=== PATIENT | female | born 1960 | race Caucasian/White ===

== ENCOUNTER → 2017-02-21 | Outpatient (CLI) | payer BC ==
--- NOTE | 2017-02-23 08:37 | RAD ---
DATE: 02/21/2017 EXAM: DIGITAL SCREEN BILAT W/CAD HISTORY: Screening COMPARISON: 01/30/2016 This study was interpreted with the benefit of Computerized Aided Detection (CAD). FINDINGS: Breast Density: SCATTERED The breast parenchyma shows scattered fibroglandular densities. Breast parenchyma level B. In the right breast, on the cc view, there is a well-defined oval mass seen best on the cc view and positioned superiorly on the MLO view. Targeted ultrasound is advised. Additionally, on the cc view of the right breast there is an area of increased density along the plane of the nipple probably reflecting summation artifact. A coned compression view and rolled CC views are suggested for confirmation. The left breast is unchanged and unremarkable. IMPRESSION: Well-defined mass upper outer right breast. Targeted ultrasound advised. Area of increased density on the cc view of the right breast likely reflecting summation artifact. Additional imaging suggested as outlined above BI-RADS CATEGORY: 0 INCOMPLETE: NEED ADDITIONAL IMAGING EVAULATION AND/OR PRIOR MAMMOGRAMS FOR COMPARISON RECOMMENDED FOLLOW-UP: ADD ADDITIONAL IMAGING PQRS compliance statement: Patient information was entered into a reminder system with a target due date soon for the next mammogram. Mammography is a sensitive method for finding small breast cancers, but it does not detect them all and is not a substitute for careful clinical examination. A negative mammogram does not negate a clinically suspicious finding and should not result in delay in biopsying a clinically suspicious abnormality. "Our facility is accredited by the [employer] Mammography Program."
== END | disposition home or self-care (01) ==
LOC: MAMMO 08:10
PROVIDERS: ATTEND Obstetrics & Gynecology
DX: Z12.31 Encounter for screening mammogram for malignant neoplasm of breast (principal)
CPT/HCPCS: G0202; 77067

== ENCOUNTER → 2017-02-26 | Outpatient (CLI) | payer BC ==
--- NOTE | 2017-02-26 13:55 | RAD ---
DATE: 02/26/2017 EXAM: DIGITAL DIAGNOSTIC RT, BREAST RIGHT HISTORY: Suspicious screening study COMPARISON: 02/21/2017, 01/30/2016, 01/24/2015 This study was interpreted with the benefit of Computerized Aided Detection (CAD). FINDINGS: Additional views of the right breast were obtained. They confirm the presence of a 10 mm smooth nodule in the lateral aspect of the right breast at approximately the 10:00 location. No associated microcalcifications are present. A possible small density seen posteriorly in the right breast near the midline on the screening CC view could not be reproduced. This appearance was probably due to a summation of fibroglandular shadows. Right breast ultrasound, 02/26/2017: A targeted ultrasound exam of the superior aspect of the right breast was performed. We first focused on the 10:00 location where the small smooth nodule was seen on the mammograms. No cystic or solid lesion was identified to correspond to this nodule. We also examined the upper portion of the right breast near the midline where the vague density had been seen on the screening study. No sonographic abnormality was detected. IMPRESSION: Additional mammograms confirm the presence of a smooth 10 mm nodule at the 10 clock location in the right breast. No sonographic correlate could be identified. Stereotactic biopsy is suggested for further evaluation. Note: The findings were discussed with the patient at the time of the exam and she is aware of the recommendation for biopsy. She will follow up with the ordering physician. BI-RADS CATEGORY: 4 SUSPICIOUS ABNORMALITY- BIOPSY SHOULD BE CONSIDERED RECOMMENDED FOLLOW-UP: BIO BIOPSY RECOMMENDED PQRS compliance statement: Patient information was entered into a reminder system with a target due date for the next mammogram. Mammography is a sensitive method for finding small breast cancers, but it does not detect them all and is not a substitute for careful clinical examination. A negative mammogram does not negate a clinically suspicious finding and should not result in delay in biopsying a clinically suspicious abnormality. "Our facility is accredited by the [employer] Mammography Program."
== END | disposition home or self-care (01) ==
LOC: MAMMO 12:40
PROVIDERS: ATTEND Obstetrics & Gynecology
DX: R92.8 Other abnormal and inconclusive findings on diagnostic imaging of breast (principal)
CPT/HCPCS: 76641; G0206; 77065

== ENCOUNTER 2017-09-04 10:37 | Day surgery (SDC) | payer OTHER ==
--- NOTE | 2017-09-03 16:21 | PDOC1 ---
JAIDEN KUMAR 09/03/17 1621: History and Physical Date of Admission Date of Admission DATE: 09/04/17 Identification/Chief Complaint Chief Complaint right wrist ganglion cyst Problems: Source Source: Chart review History of Present Illness History of Present Illness The patient is a 57 year old right-hand dominant female with a ganglion cyst on her right wrist. She denies any injuries. She does complain of pain related to the cyst. This was aspirated about 6 weeks ago and it has already recurred. She had numbness in her right hand, radiating up her arm that was improved by the aspiration. Past Medical History Past Medical History breast cyst, cervical herniated disk, carpal tunnel Pulmonary: Asthma GI: Other (colon polyps, Schatzki's ring) Past Surgical History Past Surgical History ACDF C5-6, hernia repair, left breast biopsy x3, wisdom teeth extraction Past Surgical History: Tonsillectomy Family History Family History: Diabetes, Hypertension Social History Smoke: No ALCOHOL: social Drugs: None Current Medications Current Medications Current Medications Ondansetron HCl (Zofran) 4 mg PRN Q6HRS PRN IV NAUSEA/VOMITING; Start 09/04/17 at 07:00; Stop 09/05/17 at 06:59 Fentanyl Citrate (Fentanyl 2ml Vial) 25 mcg PRN Q5MIN PRN IV MILD PAIN; Start 09/04/17 at 07:00; Stop 09/05/17 at 06:59 Fentanyl Citrate (Fentanyl 2ml Vial) 50 mcg PRN Q5MIN PRN IV MODERATE PAIN; Start 09/04/17 at 07:00; Stop 09/05/17 at 06:59 Morphine Sulfate 1 mg PRN Q10MIN PRN IV SEVERE PAIN; Start 09/04/17 at 07:00; Stop 09/05/17 at 06:59 Ringer's Solution 1,000 ml @ 30 mls/hr Q24H IV ; Start 09/04/17 at 07:00; Stop 09/04/17 at 18:59 Lidocaine HCl (Xylocaine-Mpf 1% Vial) 2 ml PRN 1X PRN ID IV START; Start at 07:00; Stop 09/05/17 at 06:59 Hydromorphone HCl (Dilaudid) 0.5 mg PRN Q10MIN PRN IV SEV PAIN, Second choice; Start 09/04/17 at 07:00; Stop 09/05/17 at 06:59 Prochlorperazine Edisylate (Compazine) 5 mg PACU PRN PRN IV NAUSEA, MRX1; Start 09/04/17 at 07:00; Stop 09/05/17 at 06:59 Allergies Allergies: Coded Allergies: nitrofurantoin (Verified Allergy, Intermediate, 09/02/17) Physical Exam General: Alert, Oriented X3, Cooperative, No acute distress HEENT: Atraumatic, EOMI Lungs: Normal air movement Heart: RRR Abdomen: Soft Extremities: No clubbing, No cyanosis, No edema, Normal pulses, Other (Right wrist: 1.5 cm x 1.5 cm ganglion cyst. The cyst illuminizes. Normal Mikel's. Normal sensation. Skin is intact. Neurovascularly intact distally. Motor function was demonstrated for the radial ulnar and median nerves, but strength is decreased due to pain and swelling. Negative Tinel's. ) Skin: No rashes, No breakdown, No significant lesion Neuro: Normal speech, Sensation intact Psych/Mental Status: Mental status NL, Mood NL VTE Prophylaxis Ordered VTE Prophylaxis Devices: Yes VTE Pharmacological Prophylaxi: Yes Assessment/Plan Assessment/Plan The patient has a ganglion cyst on the volar aspect of her right wrist that recurred shortly after an aspiration 6 weeks ago. It does illuminate under light and she has a normal Mikel's test. Dr. Mcdonnell recommended ganglion cyst excision. She agrees to this plan. Risks include going under anesthesia, nerve and artery damage, bleeding, recurrence, and infection. She agrees to this plan. Followup 10-14 days after surgery. SHILPA MCDONNELL MD 09/04/17 1345: History and Physical Allergies Allergies: Coded Allergies: nitrofurantoin (Verified Allergy, Intermediate, 09/02/17) Assessment/Plan Assessment/Plan Correction: all references to right wrist should be LEFT wrist. Patient is right handed and has a left wrist ganglion cyst. JNV 09/04/17 JAIDEN KUMAR Sep 03, 2017 16:21 SHILPA MCDONNELL MD Sep 04, 2017 13:45
[~2017-09-04] VITALS: Ht 167.6 cm; Wt 61.2 kg
[~2017-09-04 10:37] MED LIST: CALC600T4 PO; CHOL100013 PO; DEXAMETHASONE SOD PHOS 20 MG/5 ML VIAL. ONE; FAMOTIDINE 20 MG/2 ML VIAL ONE; FEXO180T81 PO; HYDROmorphone 2 MG/ML VIAL IV PRN; IV RINGERS,LACTATED 1000ML 1,000 ML IV SCH; KETOROLAC 30 MG/ML INJ FOR OR. INJ ONE; LIDOCAINE 1% PF 2 ML VIAL. ID PRN; LIDOCAINE 2% PF Vial for OR 5 ML VIAL. ONE; MIDAZOLAM HCL/PF 2 MG/2 ML VIAL. ONE; MORPHINE SULFATE 2 MG/ML DISP.SYRIN. IV PRN; MULT1TAB52 PO; ONDANSETRON PF 4 MG/2 ML VIAL. IV PRN; ONDANSETRON PF 4 MG/2 ML VIAL. ONE; PANT20TA2 PO; PROAIR HFA8.5 GM INH; PROCHLORPERAZINE 10 MG/2 ML VIAL. IV PRN; PROPOFOL 20 ML IV ONE; fentaNYL PF VIAL 100 MCG/2 ML VIAL IV PRN; fentaNYL PF VIAL 100 MCG/2 ML VIAL ONE
[2017-09-04] MEDS ORDERED: PANT40TA3 PO (11:13)
[2017-09-04] MEDS ORDERED: OMEG100021 PO (11:16)
[2017-09-04] MEDS ORDERED: ASPI81TA50 PO (11:16)
[2017-09-04] MEDS ORDERED: BUPIVAC MPF-EPI 0.5%-1:200000 30 ML VIAL. ONE (11:39)
[2017-09-04] MEDS ORDERED: SEVOFLURANE 16 TO 30 MINUTES. IH ONE (13:36)
--- NOTE | 2017-09-04 13:42 | PDOC4 ---
Operative Note Operative Note Date of Procedure: September 04, 2017 Pre-Op Diagnosis: Ganglion cyst left wrist Post-Op Diagnosis: Ganglion cyst left wrist Procedure: Excision ganglion cyst left wrist, recurrent Surgeon: Shilpa Mcdonnell MD Education Professor: Richa Montez PA-C Anesthesia: General EBL: 10 mL Specimens Obtained: Ganglion Complications: none Drains: none Tourniquet time: 6 minutes Indications for Procedure: The patient is a 57-year-old with recurrent left wrist ganglion cyst. We tried aspiration previously and the cyst immediately recurred. The patient and I discussed the risks, benefits and alternatives of surgery. We talked about the potential risks of surgery including recurrence, infection, neurovascular injury particularly to the radial artery, or other potential surgical or anesthetic competitions. Procedure in Detail: The patient was identified in the preoperative holding area. The correct left upper extremity was marked by me. The patient was taken to the operating room where general anesthesia was used. The patient was positioned supine on the operating table. Preoperative antibiotics were given intravenously. A timeout procedure was performed. The limb was prepared in sterile fashion. Sterile drapes were applied. An Esmarch bandage was used to exsanguinate the limb. The tourniquet was inflated to 250 mmHg. The volar approach of Chaim was used directly over the ganglion. Sharp dissection was used. The flexor carpi radialis tendon was retracted. The cyst was obvious, and attached to the volar aspect of the wrist joint. Circumferential careful dissection was performed. I used loupe magnification throughout to prevent arterial or nerve injury. Typical gelatinous cyst fluid was seen to express from the cyst as it was resected. After the cyst was excised, the tourniquet was released. Bovie electrocautery was used for hemostasis, using bipolar cautery near the main branches of the radial artery. Copious irrigation was used. I closed the cyst stalk where it emanated from the volar wrist capsule using 3-0 Vicryl suture. The incision edges were injected with 0.5% Marcaine with epinephrine. The incision was closed in layers. I placed 3-0 Vicryl subcutaneous cutaneous sutures. Richa closed the skin with 3-0 Prolene horizontal mattress sutures. She then applied a bulky sterile dressing and a volar wrist splint. Needle and sponge counts were correct. There were no apparent complications. SHILPA MCDONNELL MD Sep 04, 2017 13:42
[2017-09-04] MEDS ORDERED: HYDR-2762 PO (14:20)
[2017-09-04] MEDS ORDERED: HYDROcodone/APAP 7.5/325MG 1 TAB TABLET PO PRN (14:45)
[2017-09-04 14:52] VITALS: BP 114/70
[2017-09-04] MEDS ORDERED: HYDROcodone/APAP 7.5/325MG 1 TAB TABLET ONE (14:53)
--- NOTE | 2017-09-07 16:02 | PATHOLOGY ---
PATHOLOGY REPORT * * * * * * * * FINAL DIAGNOSIS: Segment of dense fibroconnective and fibroadipose tissue, left wrist: - Ganglion. (JPM:branden; 09/07/2017) REPORT ELECTRONICALLY SIGNED BY: Teodoro Christopher M.D. DATE/TIME: 09/07/2017 16:01 * * * * * * * * GROSS PATHOLOGY: Received in formalin labeled "Susi Gonzales, left wrist ganglion" is a 1.5 x 1.0 x 0.6 cm portion of marks-white rubbery soft tissue. The specimen is trisected and submitted entirely in cassette A1. ([facility]; 09/06/2017) INITIAL CPT CODE(S): A; 71188 Professional services performed by [facility] [address] Technical services performed by [facility] at [address] [place] [address], [facility] [address] [address]. SPECIMEN(S) RECEIVED: A.Left wrist ganglion CLINICAL HISTORY: Left wrist ganglion PATIENT: SUSI GONZALES /AGE: 603/15/1960 (Age: 57) PATIENT #: [id number] ALT CASE #: SPECIMEN COLLECTION DATE: 09/04/2017 SPECIMEN RECEIVED DATE: 09/04/2017 [facility] - [address] [place] [address] - PHONE: [phone] * * * END OF REPORT * * *
== END 2017-09-04 15:30 | disposition home or self-care (01) ==
LOC: SURG 10:37
PROVIDERS: ATTEND Orthopaedic Surgery
DX: M67.432 Ganglion, left wrist (principal); J45.909 Unspecified asthma, uncomplicated; Z88.1 Allergy status to other antibiotic agents; Z98.890 Other specified postprocedural states; Z86.69 Personal history of other diseases of the nervous system and sense organs; Z87.39 Personal history of other diseases of the musculoskeletal system and connective tissue
CPT/HCPCS: 25112; J0690; J1100; J2250; J2405; J2704; J3010; J3490; S0028; 88304; J1885; J2001

== ENCOUNTER → 2018-04-20 | Outpatient (CLI) | payer OTHER | END | disposition home or self-care (01) | LOC: MAMMO 08:32 | DX: Z12.31 Encounter for screening mammogram for malignant neoplasm of breast (principal); J45.909 Unspecified asthma, uncomplicated | CPT/HCPCS: 77063; 77067 ==

== ENCOUNTER → 2018-04-28 | Outpatient (CLI) | payer OTHER | END | disposition home or self-care (01) | LOC: SPEC 12:22 | DX: Z01.419 Encounter for gynecological examination (general) (routine) without abnormal findings (principal); J45.909 Unspecified asthma, uncomplicated; Z88.1 Allergy status to other antibiotic agents; Z87.39 Personal history of other diseases of the musculoskeletal system and connective tissue; Z86.69 Personal history of other diseases of the nervous system and sense organs | CPT/HCPCS: 87623; 88175 ==

== ENCOUNTER → 2018-04-29 | Outpatient (CLI) | payer OTHER ==
[2018-04-29 07:28] LABS: ADD MAN DIFF? NO
[2018-04-29 08:08] LABS: BASO % 1 % (0-3); EOS # 0.2 x10^3/uL (0.0-0.7); EOS % 2 % (0-3); HEMATOCRIT 38.8 % (36.0-47.0); LYMPH # 1.8 x10^3/uL (1.0-4.8); LYMPH % 25 % (24-48); MEAN CORPUSCULAR HEMOGLOBIN 29 pg (25-35); MEAN CORPUSCULAR HGB CONC 34 g/dL (31-37); MEAN CORPUSCULAR VOLUME 87 fL (79-100); MONO # 0.5 x10^3/uL (0.0-1.1); MONO % 8 % (0-9); NEUT # 4.7 x10^3uL (1.8-7.7); NEUT % 65 % (31-73); PLATELET COUNT 307 x10^3/uL (140-400); RED BLOOD COUNT 4.44 x10^6/uL (3.50-5.40); RED CELL DISTRIBUTION WIDTH 13.9 % (11.5-14.5); WHITE BLOOD COUNT 7.2 x10^3/uL (4.0-11.0)
[2018-04-29 08:15] LABS: ALBUMIN/GLOBULIN RATIO 1.1 (1.0-1.7); ALK PHOS 99 U/L (46-116); ALT (SGPT) 28 U/L (14-59); AST (SGOT) 26 U/L (15-37); BLOOD UREA NITROGEN 15 mg/dL (7-20); BUN/CREATININE RATIO 19 (6-20); CALCIUM 8.9 mg/dL (8.5-10.1); CHLORIDE 104 mmol/L (98-107); CREATININE 0.8 mg/dL (0.6-1.0); GFR 73.7; GLUCOSE 98 mg/dL (70-99); POTASSIUM 3.8 mmol/L (3.5-5.1); SODIUM 143 mmol/L (136-145); TOTAL BILIRUBIN 0.6 mg/dL (0.2-1.0); TOTAL PROTEIN 7.6 g/dL (6.4-8.2)
[2018-04-29 08:16] LABS: ANION GAP 9 (6-14); CARBON DIOXIDE 30 mmol/L (21-32); CHOLESTEROL 184 mg/dL (0-200); HDLC 75 mg/dL (40-60); LDLC 100 mg/dL (0-100); NON-HDL CHOLESTEROL 109 mg/dL (0-129); TRIGLYCERIDES 45 mg/dL (0-150); VLDLC 9 mg/dL (0-40)
[2018-04-29 08:18] LABS: CHOLESTEROL/HDL RATIO 2.5
[2018-04-29 08:23] LABS: THYROID STIM HORMONE (TSH) 1.463 uIU/mL (0.358-3.74)
[2018-04-29 08:23] LABS: FREE T4 0.84 ng/dL (0.76-1.46)
[2018-04-30 00:12] LABS: HEMOGLOBIN A1C 5.3 % (4.8-5.6)
== END | disposition home or self-care (01) ==
LOC: LAB 06:08
DX: Z00.01 Encounter for general adult medical examination with abnormal findings (principal); J45.909 Unspecified asthma, uncomplicated; R79.89 Other specified abnormal findings of blood chemistry
CPT/HCPCS: 36415; 80053; 80061; 83036; 84439; 84443; 85025